=== PATIENT | female | born 1960 | race Native Hawaiian/Other Pacific Islander ===

== ENCOUNTER 2018-04-15 19:40 | Emergency (ER) | payer BC, OTHER ==
[2018-04-15 19:55] VITALS: BMI 30.6
[2018-04-15 20:00] VITALS: RESP 18
[2018-04-15 20:02] VITALS: TEMP 97.6
--- NOTE | 2018-04-15 20:04 | ED PDOC ---
Arrival/HPI - General Chief Complaint: Eye Problem Time Seen by Provider: 04/15/18 19:58 Historian: Patient - History of Present Illness Narrative History of Present Illness (Text): 04/15/18 20:01 57 year old female, pmh including htn/hld/dm, NKDA, presents to the Emergency department complaining of itchy eyes and throat since few days ago. 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 Patient denies any fever, chills, nausea, vomiting, diarrhea, abdominal pain, chest pain, shortness of breath, vision changes, blurry vision, trauma, sick contact or any other complaints. Patient denies any recent travel in 3 weeks. Time/Duration: < week Symptom Onset: Gradual Symptom Course: Unchanged Activities at Onset: Light Context: Work Past Medical History - Provider Review Nursing Documentation Reviewed: Yes - Cardiac Hx Hypertension: Yes - Endocrine/Metabolic Hx Diabetes Mellitus Type 2: Yes Hx Hypothyroidism: Yes - Psychiatric Hx Substance Use: No - Anesthesia Hx Anesthesia: No Family/Social History - Physician Review Nursing Documentation Reviewed: Yes Family/Social History: No Known Family HX Smoking Status: Unknown If Ever Smoked Hx Alcohol Use: No Hx Substance Use: No Allergies/Home Meds Allergies/Adverse Reactions: Allergies No Known Allergies Allergy (Verified 04/15/18 19:55) Review of Systems - Physician Review All systems were reviewed & negative as marked: Yes - Review of Systems Constitutional: absent: Fevers Eyes: Other (Itchy eyes). absent: Vision Changes ENT: Other (Itchy throat) Respiratory: absent: SOB Cardiovascular: absent: Chest Pain Gastrointestinal: absent: Abdominal Pain, Diarrhea, Nausea, Vomiting Musculoskeletal: absent: Arthralgias, Back Pain, Myalgias Skin: absent: Rash, Pruritis, Skin Lesions Neurological: absent: Headache, Dizziness Physical Exam Vital Signs Reviewed: Yes Vital Signs Temp Pulse Resp BP Pulse Ox 04/15/18 20:10 92 H 18 161/83 H 97 04/15/18 19:59 97.6 F 100 H 18 170/104 H 98 Temperature: Afebrile Blood Pressure: Hypertensive Pulse: Tachycardic Respiratory Rate: Normal Appearance: Positive for: Well-Appearing, Non-Toxic, Comfortable Pain Distress: None Mental Status: Positive for: Alert and Oriented X 3 - Systems Exam Head: Present: Atraumatic, Normocephalic Pupils: Present: PERRL, Other (+conjunctivitis bilaterally with no hyphema or subconjunctival hemorrage, no periorbital swelling, no painful movement of the eye. ) Extroacular Muscles: Present: EOMI Conjunctiva: Present: Normal Ears: Present: NORMAL TM, Normal Canal. No: Erythema Mouth: Present: Moist Mucous Membranes Pharnyx: No: ERYTHEMA, EXUDATE, TONSILS ENLARGED, Uvular Deviation, Muffled/ Hoarse Voice, Strider, Soft Palate/Uvular Edema Nose (External): Present: Atraumatic. No: Abrasion, Contusion, Laceration Nose (Internal): Present: Normal Inspection, No Active Bleeding. No: Rhinorrhea , Septal Hematoma, Epistaxis Neck: Present: Normal Range of Motion. No: MIDLINE TENDERNESS, Paraspinal Tenderness, Lymphadenopathy Respiratory/Chest: Present: Clear to Auscultation, Good Air Exchange. No: Respiratory Distress, Accessory Muscle Use Cardiovascular: Present: Regular Rate and Rhythm, Normal S1, S2. No: Murmurs Abdomen: No: Tenderness, Distention, Peritoneal Signs, Rebound, Guarding Back: Present: Normal Inspection Upper Extremity: Present: Normal Inspection. No: Cyanosis, Edema Lower Extremity: Present: Normal Inspection. No: Edema Neurological: Present: GCS=15, CN II-XII Intact, Speech Normal, Motor Func Grossly Intact, Gait Normal, Memory Normal Skin: Present: Warm, Dry, Normal Color. No: Rashes Psychiatric: Present: Alert, Oriented x 3, Normal Insight, Normal Concentration Medical Decision Making ED Course and Treatment: 04/15/18 20:11 -Pt. stated that she can't function at work with itching eye and throat, will excuse her from work today. - Scribe Statement The provider has reviewed the documentation as recorded by the Scribe Christy Betancur. All medical record entries made by the Fuentesibfaby were at my direction and personally dictated by me. I have reviewed the chart and agree that the record accurately reflects my personal performance of the history, physical exam, medical decision making, and the department course for this patient. I have also personally directed, reviewed, and agree with the discharge instructions and disposition. Disposition/Present on Arrival - Present on Arrival Any Indicators Present on Arrival: No History of DVT/PE: No History of Uncontrolled Diabetes: No Urinary Catheter: No History of Decub. Ulcer: No History Surgical Site Infection Following: None - Disposition Have Diagnosis and Disposition been Completed?: Yes Diagnosis: Seasonal allergic conjunctivitis, Seasonal allergies Disposition: HOME/ ROUTINE Disposition Time: 20:23 Patient Problems: Current Active Problems Problem Status Onset Seasonal allergic conjunctivitis Acute Seasonal allergies Acute Condition: GOOD Additional Instructions: Discharge home with zyrtec, azelastine opthalmic, avoid exposure to possible allergen, follow up with your opthalmologist/ENT or allergiest within 2 days, return to the ER for any new or worsening signs or symptoms. Prescriptions: Azelastine HCl 1 drop OU BID #1 bot Cetirizine HCl [Zyrtec Allergy] 10 mg PO DAILY PRN #10 sgl PRN Reason: Other Referrals: Monico Lazo DO [Staff Provider] - Follow up with primary Dc Garcia MD [Staff Provider] - Follow up with primary Forms: [facility] ([place]i), WORK NOTE
[2018-04-15 20:17] VITALS: BP 161/83; PULSE 92
[2018-04-15 20:29] VITALS: O2SAT 98
== END 2018-04-15 20:28 | disposition home or self-care (01) ==
LOC: ED 19:40
DX: J30.2 Other seasonal allergic rhinitis (principal); H10.10 Acute atopic conjunctivitis, unspecified eye; E11.9 Type 2 diabetes mellitus without complications; I10 Essential (primary) hypertension; E78.5 Hyperlipidemia, unspecified; E03.9 Hypothyroidism, unspecified; Z78.0 Asymptomatic menopausal state